=== PATIENT | female | born 1975 | race Caucasian/White ===

== ENCOUNTER 2020-10-27 18:20 | Emergency (ER) | payer OTHER ==
[~2020-10-27] VITALS: Ht 177.8 cm; Wt 63.5 kg
[2020-10-27] MEDS ORDERED: SEROQUEL300 MG PO (21:19)
== END 2020-10-27 21:29 | disposition home or self-care (01) ==
LOC: ED 18:20
DX: F10.239 Alcohol dependence with withdrawal, unspecified (principal); Y90.6 Blood alcohol level of 120-199 mg/100 ml; F17.200 Nicotine dependence, unspecified, uncomplicated; Z91.040 Latex allergy status
CPT/HCPCS: 80053; 81001; 85025; 96374; 96375; 99284-25; C9113; J2060; J2405; J7030